=== PATIENT | male | born 1985 | race Caucasian/White ===

== ENCOUNTER 2024-12-23 23:09 | Emergency (ER) | payer MEDICAID ==
[~2024-12-23] VITALS: Ht 170.2 cm; Wt 104.3 kg
[2024-12-23] MEDS ORDERED: AMOX/CLAVULANATE 875 MG TABLET ONE (23:59)
[2024-12-24] MEDS ORDERED: TDAP [DIPH/PERTUSSIS/TET] 0.5 ML VIAL IM ONE
[2024-12-24] MEDS: TDAP [DIPH/PERTUSSIS/TET] 0.5 ML VIAL IM ONE (00:06)
[2024-12-24] MEDS: AMOX/CLAVULANATE 875 MG TABLET PO ONE (00:06)
[2024-12-24] MEDS ORDERED: AMOX-430 PO (00:34)
[2024-12-24 00:48] VITALS: BP 130/90; TEMP 97.9; O2SAT 99
== END 2024-12-24 00:49 | disposition home or self-care (01) ==
LOC: ER 23:16
DX: S01.311A Laceration without foreign body of right ear, initial encounter (principal); Z59.00 Homelessness unspecified; Y04.1XXA Assault by human bite, initial encounter; Y93.01 Activity, walking, marching and hiking; Y92.410 Unspecified street and highway as the place of occurrence of the external cause; Y99.8 Other external cause status
CPT/HCPCS: 90715